=== PATIENT | female | born 1940 | race Caucasian/White ===

== ENCOUNTER 2017-01-28 20:12 | Emergency (ER) | payer MEDICARE | END 2017-01-29 00:42 | disposition critical access hospital (66) | LOC: ER 20:12 | DX: I11.0 Hypertensive heart disease with heart failure (principal); I50.9 Heart failure, unspecified; R11.2 Nausea with vomiting, unspecified; I25.2 Old myocardial infarction; Z88.8 Allergy status to other drugs, medicaments and biological substances; Z79.82 Long term (current) use of aspirin; Z79.899 Other long term (current) drug therapy | CPT/HCPCS: 36415; 87502; 96374; 96375; J1940; J2550 ==

== ENCOUNTER 2017-01-28 20:12 | Inpatient (IN) | payer MEDICARE ==
[~2017-01-28] VITALS: Ht 172.7 cm; Wt 118.4 kg
--- NOTE | 2017-01-29 04:46 | NUR ---
(0324) REPORT CALLED TO JOHNATHAN OJEDA RN IN ICU, ZHAO MAURICE CALLED FROM ED CALLED AND STATED PT WILL BE TAKEN FROM ED TO ICU. REPORT CALLED AND CHART TAKEN TO ICU ALONG WITH PATIENT'S BELONGINGS. PT LEFT THE FLOOR AT [phone] VIA STRETCHER.
--- NOTE | 2017-02-02 12:33 | NUR ---
1000-MD HERE TO SEE AND ASSESS PT AT THIS TIME. NOTIFIED OF ABNORMAL LABS. PT WANTS TO GO HOME. UPDATED ON PT CONDITION. N/O'S NOTED 1100-O2 TITRATED TO 5 LITERS NC AT THIS TIME. SAT 96%
--- NOTE | 2017-02-02 14:33 | NUR ---
1355-REPORT GIVEN TO SIMONA ON MEDR UNIT. PT TRANSFERRED TO ROOM 314 AT THIS TIME.
[2017-02-04] MEDS ORDERED: SYNTHROID300 MCG PO (11:46)
[2017-02-04] MEDS ORDERED: ZANTAC300 MG PO (11:46)
[2017-02-04] MEDS ORDERED: TREXALL15 MG PO (11:47)
[2017-02-04] MEDS ORDERED: FOLIC ACID0.4 MG PO (11:48)
[2017-02-04] MEDS ORDERED: ASPIR 8181 MG PO (11:48)
[2017-02-04] MEDS ORDERED: TYLENOL EXTRA500 MG PO (11:48)
[2017-02-04] MEDS ORDERED: PAXIL30 MG PO (11:49)
[2017-02-04] MEDS ORDERED: PLAVIX75 MG PO (11:49)
[2017-02-04] MEDS ORDERED: VITAMIN D32000 UNI1 PO (11:49)
[2017-02-04] MEDS ORDERED: LIPITOR80 MG PO (11:50)
[2017-02-04] MEDS ORDERED: LASIX40 MG PO (11:50)
[2017-02-04] MEDS ORDERED: COREG6.25 MG PO (11:50)
[2017-02-04] MEDS ORDERED: B-121000 MC1 PO (11:50)
[2017-02-04] MEDS ORDERED: NEURONTIN100 MG PO (11:51)
[2017-02-04] MEDS ORDERED: COZAAR25 MG PO (11:51)
[2017-02-04] MEDS ORDERED: CEFUROXIME250 MG PO (11:52)
[2017-02-04] MEDS ORDERED: METOLAZONE2.5 MG PO (11:53)
== END 2017-02-04 14:25 | disposition home or self-care (01) | DRG 291 ==
LOC: ER 20:12 → ICU 01-29 00:43 → MED 01-29 00:43 → ICU 01-29 04:40 → MED 02-02 14:00
PROVIDERS: ADMIT Internal Medicine
DX: I13.0 Hypertensive heart and chronic kidney disease with heart failure and stage 1 through stage 4 chronic kidney disease, or unspecified chronic kidney disease (principal); I50.23 Acute on chronic systolic (congestive) heart failure; N18.4 Chronic kidney disease, stage 4 (severe); N17.9 Acute kidney failure, unspecified; Z68.41 Body mass index [BMI] 40.0-44.9, adult; N39.0 Urinary tract infection, site not specified; R09.02 Hypoxemia; I25.10 Atherosclerotic heart disease of native coronary artery without angina pectoris; I25.5 Ischemic cardiomyopathy; E66.01 Morbid (severe) obesity due to excess calories; B96.20 Unspecified Escherichia coli [E. coli] as the cause of diseases classified elsewhere; E78.5 Hyperlipidemia, unspecified; S02.2XXA Fracture of nasal bones, initial encounter for closed fracture; W18.30XA Fall on same level, unspecified, initial encounter; Y92.230 Patient room in hospital as the place of occurrence of the external cause; E87.6 Hypokalemia; Z66 Do not resuscitate; R11.2 Nausea with vomiting, unspecified; M06.9 Rheumatoid arthritis, unspecified; I25.2 Old myocardial infarction; Z90.710 Acquired absence of both cervix and uterus; Z88.8 Allergy status to other drugs, medicaments and biological substances; Z79.02 Long term (current) use of antithrombotics/antiplatelets; Z79.899 Other long term (current) drug therapy; Z87.891 Personal history of nicotine dependence; Z99.81 Dependence on supplemental oxygen; Z91.81 History of falling
CPT/HCPCS: 36415; 87502; 93306; 97162-GP; J0696; J1650; J1940; J2550